=== PATIENT | female | born 1965 | race African-American/Black ===

== ENCOUNTER 2017-01-09 06:03 | Day surgery (SDC) | payer BC ==
[~2017-01-09] VITALS: Ht 162.6 cm; Wt 93.9 kg
[~2017-01-09 06:03] MED LIST: AMOXICILLIN500 MG OR; AMOXICILLIN500 MG PO; ANTIVERT PO; ASPIRIN LOW DOS81 M2 PO; COUMADIN5 MG PO; FERR SULFATE325 MG PO; FIORICET PO; GABAPENTIN100 MG PO; GENOPTIC0.3 % OD; LORTAB 1010 MG PO; LOTREL1 CA2 PO; MEDDOSEPAK PO; NAPROSYN500 MG OR; NAPROSYN500 MG PO; NO MEDS; OMEPRAZOLE20 MG PO; ONDANSETRON4 MG PO; POLYTRIM OU; PREVACID30 M1 OR; REGLAN10 MG OR; ULTRAM50 M1 PO; ULTRAM50 MG OR; ULTRAM50 MG PO
[2017-01-09 07:47] VITALS: BP 143/61
== END 2017-01-09 08:13 | disposition home or self-care (01) | DRG 951 ==
LOC: ENDO 06:03
PROVIDERS: ATTEND Surgery
PROC: 0DJD8ZZ Inspection of Lower Intestinal Tract, Via Natural or Artificial Opening Endoscopic (ICD-10-PCS; principal; 2017-01-09)
DX: Z12.11 Encounter for screening for malignant neoplasm of colon (principal); I10 Essential (primary) hypertension; Z86.718 Personal history of other venous thrombosis and embolism; Z79.01 Long term (current) use of anticoagulants

== ENCOUNTER 2017-11-05 16:34 | Emergency (ER) | payer BC ==
[~2017-11-05] VITALS: Ht 162.6 cm; Wt 93.6 kg
[2017-11-05] MEDS ORDERED: ASPIRIN 81 LOW81 MG PO (16:49)
[2017-11-05 17:16] LABS: HEMATOCRIT 44.3 % (37.0-47.0); HEMOGLOBIN 14.4 g/dl (12.0-16.0); IMMATURE GRANULOCYTES 0.3 % (0.0-1.0); MEAN CELL VOLUME 91.2 fL CALC (80.0-100.0); MEAN CORPUSCULAR HGB 29.6 pG CALC (26.0-32.0); MEAN CORPUSCULAR HGB CONC 32.5 g/L CALC (32.0-36.0); NEUT# 3.07 thou/uL (2.00-7.15); RED BLOOD COUNT 4.86 mill/uL (4.20-5.60); RED CELL DISTRI WIDTH 12.8 % (11.5-15.5)
[2017-11-05 17:16] LABS: URINE BILIRUBIN - DIPSTICK NEGATIVE (NEGATIVE); URINE BLOOD DIPSTICK TRACE-INTACT (NEGATIVE); URINE COLOR YELLOW; URINE GLUCOSE - DIPSTICK NEGATIVE (NEGATIVE); URINE KETONE NEGATIVE (NEGATIVE); URINE LEUK ESTERASE NEGATIVE (NEGATIVE); URINE NITRITE - DIPSTICK NEGATIVE (Negative); URINE PROTEIN - DIPSTICK NEGATIVE (NEG-TRACE); URINE SPECIFIC GRAVITY >=1.030; URINE UROBILINOGEN - DIPSTICK 0.2 E.U./dL (0.2)
[2017-11-05 17:20] LABS: URINE CLARITY CLEAR
[2017-11-05 17:30] LABS: ALBUMIN 4.1 g/dL (3.2-5.0); ALKALINE PHOSPHATASE 114 u/l (38-126); ANION GAP 12 (6-22 (CALC)); BILIRUBIN, TOTAL 0.2 mg/dL (0.0-1.4); BUN 14 mg/dL (7-17); BUN/CREATININE RATIO 14 (12-20 (CALC)); CARBON DIOXIDE 26 mmol/l (22-30); CHLORIDE 108 mmol/l (95-108); GFR 58 ML/MIN (>=60 (CALC)); GFR FOR AFR.AMER. > 60 ML/MIN (>=60 (CALC)); LIPASE 240 u/l (23-300); POTASSIUM 4.2 mmol/l (3.5-5.1); SGOT/AST 19 u/l (14-36); SGPT/ALT 34 u/l (9-52); SODIUM 141 mmol/l (137-146); TOTAL PROTEIN 8.1 g/dL (6.3-8.2)
[2017-11-05] MEDS ORDERED: FLEXERIL PO (18:48)
[2017-11-05] MEDS ORDERED: TORADOL PO (18:48)
[2017-11-05 18:53] VITALS: BP 113/65
== END 2017-11-05 18:53 | disposition home or self-care (01) | DRG 552 ==
LOC: ED 16:34
PROVIDERS: Emergency Medicine
DX: M54.9 Dorsalgia, unspecified (principal); R10.9 Unspecified abdominal pain; I10 Essential (primary) hypertension; K21.9 Gastro-esophageal reflux disease without esophagitis; Z86.718 Personal history of other venous thrombosis and embolism

== ENCOUNTER 2018-08-14 16:46 | Emergency (ER) | payer BC ==
[~2018-08-14] VITALS: Ht 162.6 cm; Wt 94.1 kg
[~2018-08-14 16:46] MED LIST changes: +ASPIRIN 81 LOW81 MG PO; +FLEXERIL PO; +TORADOL PO
[2018-08-14] MEDS ORDERED: VOLTAREN - GENE75 MG PO (18:55)
[2018-08-14 19:22] VITALS: BP 126/82
== END 2018-08-14 19:20 | disposition home or self-care (01) | DRG 948 ==
LOC: ED 16:46
DX: R60.0 Localized edema (principal); T46.1X5A Adverse effect of calcium-channel blockers, initial encounter; T42.6X5A Adverse effect of other antiepileptic and sedative-hypnotic drugs, initial encounter; G62.9 Polyneuropathy, unspecified; M79.604 Pain in right leg; M19.90 Unspecified osteoarthritis, unspecified site

== ENCOUNTER 2019-04-05 10:38 | Emergency (ER) | payer BC ==
[~2019-04-05] VITALS: Ht 152.4 cm; Wt 103.0 kg
[~2019-04-05 10:38] MED LIST changes: +VOLTAREN - GENE75 MG PO
[2019-04-05 11:28] VITALS: BP 150/67
== END 2019-04-05 11:44 | disposition home or self-care (01) | DRG 607 ==
LOC: ED 10:38
DX: D22.72 Melanocytic nevi of left lower limb, including hip (principal); I10 Essential (primary) hypertension

== ENCOUNTER 2020-01-26 08:37 | Emergency (ER) | payer BC ==
[~2020-01-26] VITALS: Ht 162.6 cm; Wt 95.0 kg
[2020-01-26] MEDS ORDERED: CYCLOBENZAPR5 MG PO (09:33)
[2020-01-26] MEDS ORDERED: LISINOP/HCTZ1 TA1 PO (09:34)
[2020-01-26 09:40] VITALS: BP 128/85
== END 2020-01-26 09:48 | disposition home or self-care (01) | DRG 556 ==
LOC: ED 08:37
DX: M79.661 Pain in right lower leg (principal); M79.89 Other specified soft tissue disorders; I10 Essential (primary) hypertension; Z86.718 Personal history of other venous thrombosis and embolism

== ENCOUNTER 2020-01-27 08:53 | Emergency (ER) | payer BC ==
[~2020-01-27] VITALS: Ht 165.1 cm; Wt 95.0 kg
[~2020-01-27 08:53] MED LIST changes: +CYCLOBENZAPR5 MG PO; +LISINOP/HCTZ1 TA1 PO
[2020-01-27 10:09] LABS: GFR > 60 ML/MIN (>=60 (CALC)); GFR FOR AFR.AMER. > 60 ML/MIN (>=60 (CALC)); IMMATURE GRANULOCYTES 0.2 % (0.0-5.0); MEAN CELL VOLUME 90.9 fL CALC (80.0-100.0); MEAN CORPUSCULAR HGB 28.9 pG CALC (26.0-32.0); MEAN CORPUSCULAR HGB CONC 31.8 g/dL CAL (32.0-36.0); NEUT# 2.45 thou/uL (2.00-7.15); RED BLOOD COUNT 4.84 mill/uL (4.20-5.60); RED CELL DISTRI WIDTH 13.1 % (11.5-15.5)
[2020-01-27 10:22] LABS: ALBUMIN 4.3 g/dL (3.2-5.0); ALKALINE PHOSPHATASE 116 u/l (38-126); ANION GAP 11 (6-22 (CALC)); BUN 12 mg/dL (7-17); BUN/CREATININE RATIO 15 (12-20 (CALC)); CARBON DIOXIDE 31 mmol/l (22-30); CHLORIDE 101 mmol/l (95-108); CREATININE 0.8 mg/dL (0.5-1.0); GFR > 60 ML/MIN (>=60 (CALC)); GFR FOR AFR.AMER. > 60 ML/MIN (>=60 (CALC)); POTASSIUM 4.2 mmol/l (3.5-5.1); SGOT/AST 22 u/l (14-36); SODIUM 139 mmol/l (137-146); TOTAL PROTEIN 8.2 g/dL (6.3-8.2)
[2020-01-27 10:23] LABS: BILIRUBIN, TOTAL 0.6 mg/dL (0.0-1.4)
[2020-01-27 12:05] VITALS: BP 103/54
== END 2020-01-27 12:05 | disposition home or self-care (01) | DRG 556 ==
LOC: ED 08:53
PROVIDERS: Family Medicine
DX: M79.661 Pain in right lower leg (principal); I10 Essential (primary) hypertension; Z86.79 Personal history of other diseases of the circulatory system
CPT/HCPCS: Q9967

== ENCOUNTER 2020-07-13 13:02 | Emergency (ER) | payer BC ==
[~2020-07-13] VITALS: Ht 165.1 cm; Wt 92.0 kg
[2020-07-13] MEDS ORDERED: NAPROXEN500 MG PO (15:29)
[2020-07-13 15:46] VITALS: BP 131/79
== END 2020-07-13 15:46 | disposition home or self-care (01) | DRG 554 ==
LOC: ED 13:02
DX: M17.12 Unilateral primary osteoarthritis, left knee (principal); I10 Essential (primary) hypertension; K21.9 Gastro-esophageal reflux disease without esophagitis; Z86.79 Personal history of other diseases of the circulatory system

== ENCOUNTER 2021-01-15 18:58 | Emergency (ER) | payer BC ==
[~2021-01-15] VITALS: Ht 165.1 cm; Wt 92.0 kg
[~2021-01-15 18:58] MED LIST changes: +NAPROXEN500 MG PO
[2021-01-15 19:53] LABS: HEMATOCRIT 44.1 % (37.0-47.0); HEMOGLOBIN 14.2 g/dl (12.0-16.0); MEAN CELL VOLUME 92.5 fL CALC (80.0-100.0); MEAN CORPUSCULAR HGB 29.8 pG CALC (26.0-32.0); MEAN CORPUSCULAR HGB CONC 32.2 g/dL CAL (32.0-36.0); NEUT# 2.92 thou/uL (2.00-7.15); RED BLOOD COUNT 4.77 mill/uL (4.20-5.60)
[2021-01-15 20:09] LABS: ALBUMIN 3.9 g/dL (3.2-5.0); ALKALINE PHOSPHATASE 100 u/l (38-126); ANION GAP 13 (6-22 (CALC)); BUN 16 mg/dL (7-17); BUN/CREATININE RATIO 17 (12-20 (CALC)); CARBON DIOXIDE 28 mmol/l (22-30); CHLORIDE 101 mmol/l (95-108); CREATININE 0.9 mg/dL (0.5-1.0); GFR > 60 ML/MIN (>=60 (CALC)); GFR FOR AFR.AMER. > 60 ML/MIN (>=60 (CALC)); SGOT/AST 25 u/l (14-36); SODIUM 137 mmol/l (137-146); TOTAL PROTEIN 7.6 g/dL (6.3-8.2)
[2021-01-15 20:11] LABS: ACT PARTIAL THROMBO TIME 24.5 SECONDS (20.0-32.5); PROTHROMBIN TIME 10.7 SECONDS (9.0-12.5)
[2021-01-15 20:13] LABS: BILIRUBIN, TOTAL 0.3 mg/dL (0.0-1.4)
[2021-01-15 20:25] LABS: D-DIMER 9.71 mg/L (0.19-0.60)
[2021-01-15 21:33] VITALS: BP 106/71
== END 2021-01-15 21:39 | disposition home or self-care (01) | DRG 563 ==
LOC: ED 18:58
PROVIDERS: Family Medicine
DX: S86.911A Strain of unspecified muscle(s) and tendon(s) at lower leg level, right leg, initial encounter (principal); I10 Essential (primary) hypertension; K21.9 Gastro-esophageal reflux disease without esophagitis; X58.XXXA Exposure to other specified factors, initial encounter; Z86.718 Personal history of other venous thrombosis and embolism

== ENCOUNTER 2021-01-17 08:59 | Emergency (ER) | payer BC ==
[~2021-01-17] VITALS: Ht 165.1 cm; Wt 93.0 kg
[2021-01-17 10:23] LABS: HEMOGLOBIN 15.4 g/dl (12.0-16.0); IMMATURE GRANULOCYTES 0.2 % (0.0-5.0); MEAN CELL VOLUME 92.3 fL CALC (80.0-100.0); MEAN CORPUSCULAR HGB 29.6 pG CALC (26.0-32.0); MEAN CORPUSCULAR HGB CONC 32.1 g/dL CAL (32.0-36.0); NEUT# 2.79 thou/uL (2.00-7.15); RED BLOOD COUNT 5.2 mill/uL (4.20-5.60); RED CELL DISTRI WIDTH 12.9 % (11.5-15.5)
[2021-01-17 10:31] LABS: ALBUMIN 4.2 g/dL (3.2-5.0); ALKALINE PHOSPHATASE 110 u/l (38-126); ANION GAP 13 (6-22 (CALC)); BILIRUBIN, TOTAL 0.4 mg/dL (0.0-1.4); BUN 17 mg/dL (7-17); BUN/CREATININE RATIO 20 (12-20 (CALC)); CARBON DIOXIDE 31 mmol/l (22-30); CHLORIDE 99 mmol/l (95-108); CPK 60 u/l (30-165); CREATININE 0.9 mg/dL (0.5-1.0); GFR > 60 ML/MIN (>=60 (CALC)); GFR FOR AFR.AMER. > 60 ML/MIN (>=60 (CALC)); POTASSIUM 4.1 mmol/l (3.5-5.1); SGOT/AST 23 u/l (14-36); SODIUM 138 mmol/l (137-146); TOTAL PROTEIN 8.2 g/dL (6.3-8.2)
[2021-01-17 10:35] LABS: ACT PARTIAL THROMBO TIME 24.8 SECONDS (20.0-32.5); PROTHROMBIN TIME 10.3 SECONDS (9.0-12.5)
[2021-01-17 10:40] LABS: MYOGLOBIN 30 ng/mL (0 - 62)
[2021-01-17] MEDS ORDERED: XARELTO20 MG PO (10:49)
[2021-01-17] MEDS ORDERED: XARELTO15 MG PO (10:49)
[2021-01-17 11:00] VITALS: BP 124/75
== END 2021-01-17 11:11 | disposition home or self-care (01) | DRG 301 ==
LOC: ED 08:59
PROVIDERS: Emergency Medicine
DX: I82.431 Acute embolism and thrombosis of right popliteal vein (principal); I10 Essential (primary) hypertension; K21.9 Gastro-esophageal reflux disease without esophagitis; Z86.718 Personal history of other venous thrombosis and embolism

== ENCOUNTER 2021-10-12 09:45 | Emergency (ER) | payer BC ==
[~2021-10-12] VITALS: Ht 165.1 cm; Wt 96.3 kg
[~2021-10-12 09:45] MED LIST changes: +XARELTO15 MG PO; +XARELTO20 MG PO
[2021-10-12 09:51] VITALS: BP 134/75
[2021-10-12 10:01] VITALS: BP 127/70
[2021-10-12] MEDS ORDERED: METFORMIN500 M2 PO (10:04)
[2021-10-12] MEDS ORDERED: XARELTO10 MG PO (10:05)
[2021-10-12] MEDS ORDERED: VOLTAREN1%GEL TOP (13:03)
[2021-10-12 13:14] VITALS: BP 127/70
== END 2021-10-12 13:23 | disposition home or self-care (01) | DRG 556 ==
LOC: ED 09:45
DX: M79.661 Pain in right lower leg (principal); I10 Essential (primary) hypertension; E11.9 Type 2 diabetes mellitus without complications; K21.9 Gastro-esophageal reflux disease without esophagitis; Z86.718 Personal history of other venous thrombosis and embolism; Z79.84 Long term (current) use of oral hypoglycemic drugs; Z79.01 Long term (current) use of anticoagulants

== ENCOUNTER 2021-11-19 11:00 | Emergency (ER) | payer BC ==
[~2021-11-19] VITALS: Ht 165.1 cm; Wt 100.0 kg
[~2021-11-19 11:00] MED LIST changes: +METFORMIN500 M2 PO; +VOLTAREN1%GEL TOP; +XARELTO10 MG PO
[2021-11-19 13:35] VITALS: BP 146/93
== END 2021-11-19 13:39 | disposition home or self-care (01) | DRG 556 ==
LOC: ED 11:00
DX: M25.571 Pain in right ankle and joints of right foot (principal); M25.561 Pain in right knee; I10 Essential (primary) hypertension; E11.9 Type 2 diabetes mellitus without complications; K21.9 Gastro-esophageal reflux disease without esophagitis; W01.0XXA Fall on same level from slipping, tripping and stumbling without subsequent striking against object, initial encounter; Y92.512 Supermarket, store or market as the place of occurrence of the external cause; Z86.718 Personal history of other venous thrombosis and embolism; Z79.84 Long term (current) use of oral hypoglycemic drugs

== ENCOUNTER 2022-04-11 07:09 | Emergency (ER) | payer BC ==
[~2022-04-11] VITALS: Ht 165.1 cm; Wt 96.8 kg
[2022-04-11 07:24] VITALS: BP 116/59
[2022-04-11 07:31] VITALS: BP 104/60
[2022-04-11] MEDS ORDERED: PRAVASTATIN SOD20 MG PO (07:42)
[2022-04-11] MEDS ORDERED: DULOXETINE HCL20 MG (07:43)
[2022-04-11 07:46] VITALS: BP 112/49
[2022-04-11 08:01] VITALS: BP 112/51
[2022-04-11] MEDS ORDERED: NAPROXEN500 MG PO (08:49)
[2022-04-11] MEDS ORDERED: TRAMADOL HYDROC50 M1 PO (08:57)
[2022-04-11 09:00] VITALS: BP 112/51
== END 2022-04-11 09:08 | disposition home or self-care (01) | DRG 556 ==
LOC: ED 07:09
DX: M79.604 Pain in right leg (principal); E11.9 Type 2 diabetes mellitus without complications; Z79.84 Long term (current) use of oral hypoglycemic drugs; I10 Essential (primary) hypertension; K21.9 Gastro-esophageal reflux disease without esophagitis